=== PATIENT | female | born 1940 | race Caucasian/White ===

== ENCOUNTER 2017-09-16 09:55 | Day surgery (SDC) | payer OTHER ==
[~2017-09-16] VITALS: Ht 162.6 cm; Wt 56.4 kg
[~2017-09-16 09:55] MED LIST: ACCUPRIL PO; ACET325 PO; ACET500 PO; ACYC200 PO; AMOX500; ASPI81CH PO; ATOR40TA; ATOR40TA PO; Bactrim 400-801 EACH PO; CEPH500 PO; CHOL10002 PO; CINNAMON 500MG PO; CIPR500 PO; CLOT10 SUSW; COUMADIN PO; CYCL10; CYCL10 PO; Cinnamon500 MG PO; Coumadin7.5 MG PO; DOCU100; DOXY100 PO; ESOM20; EXELON PO; EXELON1 EACH PO; FAMO40 PO; Ferrous Sulfat325 M2 PO; GLIM4 PO; GLYMET5; GLYMET5 PO; HYDACE5; HYDACE5 PO; HYDPAM25; Kristalose20 GM PO; LACT10SY PO; LEVSOD75 PO; LOVA20; MECL12.5; METF500C PO; METHOTREXATE 25 MG/ML PO; METTREX2.5; Miralax17 GM PO; Nicoderm Cq1 EAC1 TD; OXYACE5T PO; OXYC10ER; OXYC5; OXYC5 PO; Omeprazole20 M1; Omeprazole20 M1 PO; PRED20 PO; PROACE100; Pepcid40 MG PO; QUIN10 PO; QUIN5; RIVASTIGMINE3 MG PO; RIVASTIGMINE4.5 MG PO; SERT100 PO; SERT50; SERT50 PO; Senexon8.6 MG; Sulfamethoxazo1 EAC4; TOCO400 PO; WARF1; WARF10 PO; WARF6; WARF6 PO; WARF7.5
[2017-10-20] MEDS ORDERED: TOCO1000 (15:29)
[2017-10-20] MEDS ORDERED: COLACE CLEAR50 MG PO (15:30)
[2017-10-20] MEDS ORDERED: MIRALAX17 GM PO (15:30)
[2017-10-20] MEDS ORDERED: SENEXON-S TABL1 EACH PO (15:30)
[2017-10-20] MEDS ORDERED: ALA-CORT28.4 GM (15:32)
[2017-11-04] MEDS ORDERED: MECL12.5 PO (13:17)
[2018-06-22] MEDS ORDERED: ALBU90OI6 INH (20:50)
[2018-06-22] MEDS ORDERED: ANORO ELLIPTA1 EACH INH (20:51)
[2018-06-24] MEDS ORDERED: OMEPRAZOLE MAGN20 MG PO (11:20)
[2018-06-24] MEDS ORDERED: Refresh Liquige15 ML BOTHEYES (11:22)
[2018-07-16] MEDS ORDERED: SERT100 PO (20:00)
[2018-07-16] MEDS ORDERED: LANS30EC PO (20:00)
[2018-07-16] MEDS ORDERED: GLIM4 PO (20:00)
[2018-07-16] MEDS ORDERED: RIVASTIGMINE6 MG PO (20:01)
[2018-07-16] MEDS ORDERED: ANORO ELLIPTA1 EACH INH (23:34)
[2018-07-16] MEDS ORDERED: ALBU90OI61 INH (23:37)
[2018-07-17] MEDS ORDERED: PANT40 PO (17:38)
== END 2017-09-16 12:56 | disposition home or self-care (01) ==
LOC: ORSCSDS 09:55
PROVIDERS: Ophthalmology
PROC: 08RK3JZ Replacement of Left Lens with Synthetic Substitute, Percutaneous Approach (ICD-10-PCS; principal; 2017-09-16 11:30)
DX: H25.12 Age-related nuclear cataract, left eye (principal); I10 Essential (primary) hypertension; E11.9 Type 2 diabetes mellitus without complications; Z87.891 Personal history of nicotine dependence; Z79.84 Long term (current) use of oral hypoglycemic drugs; Z79.899 Other long term (current) drug therapy
CPT/HCPCS: 82947; J2250; J3010; J7040; V2632

== ENCOUNTER 2017-10-12 10:47 | Emergency (ER) | payer OTHER ==
[~2017-10-12] VITALS: Ht 162.6 cm; Wt 80.7 kg
[2017-10-12 11:56] LABS: BASOPHILS PERCENT AUTO 1 % (0-2); EOSINOPHILS ABSOLUTE AUTO 0.16 K/mm3 (0.00-0.68); EOSINOPHILS PERCENT AUTO 2 % (0-6); Hematocrit 42.5 % (33.0-51.0); IMMATURE GRAN ABSOLUTE AUTO 0.03 K/mm3 (0.00-0.10); IMMATURE GRAN PERCENT AUTO 0 % (0-1); LYMPHOCYTES ABSOLUTE AUTO 2.75 K/mm3 (0.84-5.20); LYMPHOCYTES PERCENT AUTO 38 % (21-46); MONOCYTES ABSOLUTE AUTO 0.64 K/mm3 (0.16-1.47); MONOCYTES PERCENT AUTO 9 % (4-13); Mean Corpuscular HGB 29.4 pg (26.0-34.0); Mean Corpuscular HGB Conc 32.9 g/dL (31.5-36.5); Mean Corpuscular Volume 89 fL (80-100); Mean Platelet Volume 9.1 fL (9.1-12.4); NEUTROPHILS ABSOLUTE AUTO 3.54 K/mm3 (1.96-9.15); NEUTROPHILS PERCENT AUTO 49 % (41-73); Platelet Count 335 K/mm3 (150-400); RDW Coefficient Variation 18.6 % (11.7-14.2); RDW Standard Deviation 61.8 fL (35.1-46.3); Red Blood Cell Count 4.76 M/mm3 (3.80-5.20); White Blood Cell Count 7.22 K/mm3 (4.00-11.30)
[2017-10-12 12:15] LABS: Alanine Aminotransfer (ALT/SGP 35 U/L (12-78); Albumin, Blood 3.6 g/dL (3.4-5.0); Albumin/Globulin Ratio 0.9 (0.8-1.8); Alk Phos 102 U/L (50-136); Anion Gap 7 mmol/L (6-16); Aspartate Aminotrans (AST/SGOT 24 U/L (12-37); Bilirubin, Total 0.7 mg/dL (0.1-1.0); Blood Urea Nitrogen 15 mg/dL (8-24); Bun/Creatinine Ratio 25.9 (12.0-20.0); CO2, Blood 25 mmol/L (21-32); Calcium, Blood 8.8 mg/dL (8.5-10.1); Chloride, Blood 105 mmol/L (98-108); Creatinine, Blood 0.58 mg/dL (0.40-1.00); Globulin, Blood 3.8 g/dL (2.2-4.0); Glomerular Filtration Rate >60 (60-); Glucose, Blood 205 mg/dL (70-99); Potassium, Blood 4.1 mmol/L (3.5-5.5); Sodium, Blood 137 mmol/L (136-145); Total Protein, Blood 7.4 g/dL (6.4-8.2)
[2017-10-12 12:19] LABS: International Normalized Ratio 1.03; Prothrombin Time Results 10.7 Sec (9.7-11.5)
[2017-10-12 15:17] LABS: Source, Urine Clean Catch
[2017-10-12 15:24] LABS: Appearance, Urine Clear (Clear); Bilirubin, Urine Neg (Neg); Blood, Urine 2+ (Neg); Color, Urine Yellow (P-Yellow); Glucose Qualitative, Urine Neg (Neg); Ketones, Urine Neg (Neg); Leukocyte Esterase, Urine Neg (Neg); Nitrite, Urine Neg (Neg); Protein, Urine Neg (Neg); Specific Gravity, Urine 1.015 (1.003-1.022); Urobilinogen, Urine NORM (Normal)
[2017-10-12 15:34] LABS: Bacteria Not Seen /hpf; Red Blood Cells, Urine Not Seen /hpf (0-2); Squamous Epithelial Cells Not Seen /hpf (Few); White Blood Cells, Urine Not Seen /hpf (0-5)
[2017-10-20] MEDS ORDERED: TOCO1000 (15:29)
[2017-10-20] MEDS ORDERED: SENEXON-S TABL1 EACH PO (15:30)
[2017-10-20] MEDS ORDERED: COLACE CLEAR50 MG PO (15:30)
[2017-10-20] MEDS ORDERED: MIRALAX17 GM PO (15:30)
[2017-10-20] MEDS ORDERED: ALA-CORT28.4 GM (15:32)
[2017-11-04] MEDS ORDERED: MECL12.5 PO (13:17)
[2018-06-22] MEDS ORDERED: ALBU90OI6 INH (20:50)
[2018-06-22] MEDS ORDERED: ANORO ELLIPTA1 EACH INH (20:51)
[2018-06-24] MEDS ORDERED: OMEPRAZOLE MAGN20 MG PO (11:20)
[2018-06-24] MEDS ORDERED: Refresh Liquige15 ML BOTHEYES (11:22)
[2018-07-16] MEDS ORDERED: SERT100 PO (20:00)
[2018-07-16] MEDS ORDERED: GLIM4 PO (20:00)
[2018-07-16] MEDS ORDERED: LANS30EC PO (20:00)
[2018-07-16] MEDS ORDERED: RIVASTIGMINE6 MG PO (20:01)
[2018-07-16] MEDS ORDERED: ANORO ELLIPTA1 EACH INH (23:34)
[2018-07-16] MEDS ORDERED: ALBU90OI61 INH (23:37)
[2018-07-17] MEDS ORDERED: PANT40 PO (17:38)
== END 2017-10-12 16:25 | disposition home or self-care (01) ==
LOC: ER 10:47
PROVIDERS: Emergency Medicine
DX: R19.5 Other fecal abnormalities (principal); Z88.0 Allergy status to penicillin; Z88.8 Allergy status to other drugs, medicaments and biological substances; Z79.84 Long term (current) use of oral hypoglycemic drugs; Z79.899 Other long term (current) drug therapy; Z79.82 Long term (current) use of aspirin; E11.9 Type 2 diabetes mellitus without complications; I10 Essential (primary) hypertension; E78.5 Hyperlipidemia, unspecified; E03.9 Hypothyroidism, unspecified; F17.200 Nicotine dependence, unspecified, uncomplicated; K92.1 Melena
CPT/HCPCS: 36415; 71046; 80053; 81001; 82947; 85025; 85610; 85730; 86850; 86900; 86901; 93005; 93010; 99284

== ENCOUNTER 2017-10-28 11:58 | Day surgery (SDC) | payer OTHER ==
[~2017-10-28] VITALS: Ht 162.6 cm; Wt 56.7 kg
[~2017-10-28 11:58] MED LIST changes: +ALA-CORT28.4 GM; +COLACE CLEAR50 MG PO; +MIRALAX17 GM PO; +SENEXON-S TABL1 EACH PO; +TOCO1000
[2017-11-04] MEDS ORDERED: MECL12.5 PO (13:17)
[2018-06-22] MEDS ORDERED: ALBU90OI6 INH (20:50)
[2018-06-22] MEDS ORDERED: ANORO ELLIPTA1 EACH INH (20:51)
[2018-06-24] MEDS ORDERED: OMEPRAZOLE MAGN20 MG PO (11:20)
[2018-06-24] MEDS ORDERED: Refresh Liquige15 ML BOTHEYES (11:22)
[2018-07-16] MEDS ORDERED: SERT100 PO (20:00)
[2018-07-16] MEDS ORDERED: LANS30EC PO (20:00)
[2018-07-16] MEDS ORDERED: GLIM4 PO (20:00)
[2018-07-16] MEDS ORDERED: RIVASTIGMINE6 MG PO (20:01)
[2018-07-16] MEDS ORDERED: ANORO ELLIPTA1 EACH INH (23:34)
[2018-07-16] MEDS ORDERED: ALBU90OI61 INH (23:37)
[2018-07-17] MEDS ORDERED: PANT40 PO (17:38)
== END 2017-10-28 13:51 | disposition home or self-care (01) ==
LOC: ORSCSDS 11:58
PROVIDERS: Ophthalmology
PROC: 08RJ3JZ Replacement of Right Lens with Synthetic Substitute, Percutaneous Approach (ICD-10-PCS; principal; 2017-10-28 13:30)
DX: H25.11 Age-related nuclear cataract, right eye (principal); I10 Essential (primary) hypertension; F17.210 Nicotine dependence, cigarettes, uncomplicated; E11.9 Type 2 diabetes mellitus without complications; Z79.82 Long term (current) use of aspirin; Z79.899 Other long term (current) drug therapy; Z79.84 Long term (current) use of oral hypoglycemic drugs
CPT/HCPCS: 82947; J2250; J3010; J7040; V2632

== ENCOUNTER 2017-11-05 02:36 | Day surgery (SDC) | payer OTHER ==
[~2017-11-05] VITALS: Ht 190.5 cm; Wt 56.0 kg
[~2017-11-05 02:36] MED LIST changes: +MECL12.5 PO
[2017-11-05] MEDS ORDERED: Plavix75 MG PO (14:03)
[2017-11-06] MEDS ORDERED: Norco 5-325 Ta1 EACH PO (11:05)
[2017-11-06] MEDS ORDERED: Zofran4 MG PO (11:05)
[2018-06-22] MEDS ORDERED: ALBU90OI6 INH (20:50)
[2018-06-22] MEDS ORDERED: ANORO ELLIPTA1 EACH INH (20:51)
[2018-06-24] MEDS ORDERED: OMEPRAZOLE MAGN20 MG PO (11:20)
[2018-06-24] MEDS ORDERED: Refresh Liquige15 ML BOTHEYES (11:22)
[2018-07-16] MEDS ORDERED: SERT100 PO (20:00)
[2018-07-16] MEDS ORDERED: LANS30EC PO (20:00)
[2018-07-16] MEDS ORDERED: GLIM4 PO (20:00)
[2018-07-16] MEDS ORDERED: RIVASTIGMINE6 MG PO (20:01)
[2018-07-16] MEDS ORDERED: ANORO ELLIPTA1 EACH INH (23:34)
[2018-07-16] MEDS ORDERED: ALBU90OI61 INH (23:37)
[2018-07-17] MEDS ORDERED: PANT40 PO (17:38)
== END 2017-11-05 19:53 | disposition home or self-care (01) ==
LOC: MHTC 02:36 → ICUE 15:16 → MHTC 19:53
PROC: 047R3ZZ Dilation of Right Posterior Tibial Artery, Percutaneous Approach (ICD-10-PCS; principal; 2017-11-05)
PROC: 04CR3ZZ Extirpation of Matter from Right Posterior Tibial Artery, Percutaneous Approach (ICD-10-PCS; principal; 2017-11-05)
PROC: 047C3ZZ Dilation of Right Common Iliac Artery, Percutaneous Approach (ICD-10-PCS; principal; 2017-11-05)
PROC: 047D3EZ Dilation of Left Common Iliac Artery with Two Intraluminal Devices, Percutaneous Approach (ICD-10-PCS; principal; 2017-11-05)
DX: E11.51 Type 2 diabetes mellitus with diabetic peripheral angiopathy without gangrene (principal); I70.221 Atherosclerosis of native arteries of extremities with rest pain, right leg; I70.202 Unspecified atherosclerosis of native arteries of extremities, left leg; I10 Essential (primary) hypertension; F32.9 Major depressive disorder, single episode, unspecified; F17.210 Nicotine dependence, cigarettes, uncomplicated
CPT/HCPCS: 37186; 37221; 37229; 37232; 75625; 75710; 85347; 93005; 93010; 99152; 99153; C1724; C1725; C1757; C1769; C1876; C1887; C1894; J1644; J1885; J2250; J3010; J7030; J7040; Q9967

== ENCOUNTER 2017-11-06 09:00 | Emergency (ER) | payer OTHER ==
[~2017-11-06] VITALS: Ht 162.6 cm; Wt 55.8 kg
[~2017-11-06 09:00] MED LIST changes: +Plavix75 MG PO
[2017-11-06] MEDS ORDERED: Zofran4 MG PO (11:05)
[2017-11-06] MEDS ORDERED: Norco 5-325 Ta1 EACH PO (11:05)
[2018-06-22] MEDS ORDERED: ALBU90OI6 INH (20:50)
[2018-06-22] MEDS ORDERED: ANORO ELLIPTA1 EACH INH (20:51)
[2018-06-24] MEDS ORDERED: OMEPRAZOLE MAGN20 MG PO (11:20)
[2018-06-24] MEDS ORDERED: Refresh Liquige15 ML BOTHEYES (11:22)
[2018-07-16] MEDS ORDERED: GLIM4 PO (20:00)
[2018-07-16] MEDS ORDERED: LANS30EC PO (20:00)
[2018-07-16] MEDS ORDERED: SERT100 PO (20:00)
[2018-07-16] MEDS ORDERED: RIVASTIGMINE6 MG PO (20:01)
[2018-07-16] MEDS ORDERED: ANORO ELLIPTA1 EACH INH (23:34)
[2018-07-16] MEDS ORDERED: ALBU90OI61 INH (23:37)
[2018-07-17] MEDS ORDERED: PANT40 PO (17:38)
== END 2017-11-06 12:00 | disposition home or self-care (01) ==
LOC: ER 09:00
DX: G89.18 Other acute postprocedural pain (principal); M79.661 Pain in right lower leg; E11.9 Type 2 diabetes mellitus without complications; I10 Essential (primary) hypertension; E78.00 Pure hypercholesterolemia, unspecified; F17.210 Nicotine dependence, cigarettes, uncomplicated; Z88.1 Allergy status to other antibiotic agents; Z88.8 Allergy status to other drugs, medicaments and biological substances; Z79.82 Long term (current) use of aspirin; Z79.899 Other long term (current) drug therapy; Z98.61 Coronary angioplasty status
CPT/HCPCS: 93926; 96374; 96375; 99284; J2405; J3010

== ENCOUNTER 2017-12-09 17:22 | Observation (INO) | payer OTHER ==
[~2017-12-09] VITALS: Ht 162.6 cm; Wt 55.8 kg
[~2017-12-09 17:22] MED LIST changes: +METF500 PO; -METF500C PO; +Norco 5-325 Ta1 EACH PO; +Zofran4 MG PO
[2017-12-09] MEDS ORDERED: Prilosec Otc20 MG (17:37)
[2017-12-09] MEDS ORDERED: Prilosec Otc20 MG PO (17:37)
[2017-12-09 18:08] LABS: BASOPHILS ABSOLUTE AUTO 0.12 K/mm3 (0.00-0.23); BASOPHILS PERCENT AUTO 1 % (0-2); EOSINOPHILS ABSOLUTE AUTO 0.18 K/mm3 (0.00-0.68); EOSINOPHILS PERCENT AUTO 2 % (0-6); Hemoglobin 10.4 g/dL (11.5-16.0); IMMATURE GRAN ABSOLUTE AUTO 0.04 K/mm3 (0.00-0.10); IMMATURE GRAN PERCENT AUTO 0 % (0-1); LYMPHOCYTES PERCENT AUTO 34 % (21-46); MONOCYTES ABSOLUTE AUTO 0.92 K/mm3 (0.16-1.47); MONOCYTES PERCENT AUTO 10 % (4-13); Mean Corpuscular HGB 28.9 pg (26.0-34.0); Mean Corpuscular HGB Conc 31.5 g/dL (31.5-36.5); Mean Corpuscular Volume 92 fL (80-100); Mean Platelet Volume 9.2 fL (9.1-12.4); NEUTROPHILS ABSOLUTE AUTO 4.76 K/mm3 (1.96-9.15); NEUTROPHILS PERCENT AUTO 52 % (41-73); Platelet Count 518 K/mm3 (150-400); RDW Coefficient Variation 17.4 % (11.7-14.2); RDW Standard Deviation 59.2 fL (35.1-46.3); White Blood Cell Count 9.12 K/mm3 (4.00-11.30)
[2017-12-09 18:26] LABS: Alanine Aminotransfer (ALT/SGP 24 U/L (12-78); Albumin, Blood 3.7 g/dL (3.4-5.0); Albumin/Globulin Ratio 0.9 (0.8-1.8); Alk Phos 101 U/L (50-136); Anion Gap 6 mmol/L (6-16); Aspartate Aminotrans (AST/SGOT 21 U/L (12-37); Bilirubin, Total 0.3 mg/dL (0.1-1.0); Blood Urea Nitrogen 15 mg/dL (8-24); Bun/Creatinine Ratio 20.2 (12.0-20.0); CO2, Blood 23 mmol/L (21-32); Chloride, Blood 110 mmol/L (98-108); Creatinine, Blood 0.74 mg/dL (0.40-1.00); Globulin, Blood 3.9 g/dL (2.2-4.0); Glomerular Filtration Rate >60 (60-); Glucose, Blood 64 mg/dL (70-99); Potassium, Blood 4.2 mmol/L (3.5-5.5); Sodium, Blood 139 mmol/L (136-145); Total Protein, Blood 7.6 g/dL (6.4-8.2)
[2017-12-09 18:28] LABS: Troponin I <0.015 ng/mL (0.000-0.040)
[2017-12-09] MEDS ORDERED: ARTIFICIAL TEAR15 ML BOTHEYES (23:16)
[2017-12-10 04:13] LABS: BASOPHILS ABSOLUTE AUTO 0.09 K/mm3 (0.00-0.23); BASOPHILS PERCENT AUTO 2 % (0-2); EOSINOPHILS ABSOLUTE AUTO 0.18 K/mm3 (0.00-0.68); EOSINOPHILS PERCENT AUTO 3 % (0-6); Hematocrit 29.3 % (33.0-51.0); Hemoglobin 9.2 g/dL (11.5-16.0); IMMATURE GRAN ABSOLUTE AUTO 0.01 K/mm3 (0.00-0.10); IMMATURE GRAN PERCENT AUTO 0 % (0-1); LYMPHOCYTES PERCENT AUTO 46 % (21-46); MONOCYTES ABSOLUTE AUTO 0.68 K/mm3 (0.16-1.47); MONOCYTES PERCENT AUTO 12 % (4-13); Mean Corpuscular HGB 28.5 pg (26.0-34.0); Mean Corpuscular HGB Conc 31.4 g/dL (31.5-36.5); Mean Corpuscular Volume 91 fL (80-100); Mean Platelet Volume 8.9 fL (9.1-12.4); NEUTROPHILS ABSOLUTE AUTO 2.02 K/mm3 (1.96-9.15); NEUTROPHILS PERCENT AUTO 37 % (41-73); Platelet Count 464 K/mm3 (150-400); RDW Coefficient Variation 17.5 % (11.7-14.2); RDW Standard Deviation 58.2 fL (35.1-46.3); Red Blood Cell Count 3.23 M/mm3 (3.80-5.20); White Blood Cell Count 5.48 K/mm3 (4.00-11.30)
[2017-12-10 04:45] LABS: Alanine Aminotransfer (ALT/SGP 24 U/L (12-78); Albumin, Blood 3.1 g/dL (3.4-5.0); Albumin/Globulin Ratio 0.9 (0.8-1.8); Alk Phos 82 U/L (50-136); Anion Gap 6 mmol/L (6-16); Aspartate Aminotrans (AST/SGOT 12 U/L (12-37); Bilirubin, Total 0.3 mg/dL (0.1-1.0); Blood Urea Nitrogen 18 mg/dL (8-24); Bun/Creatinine Ratio 22.8 (12.0-20.0); CO2, Blood 27 mmol/L (21-32); Calcium, Blood 8.5 mg/dL (8.5-10.1); Chloride, Blood 108 mmol/L (98-108); Creatinine, Blood 0.79 mg/dL (0.40-1.00); Globulin, Blood 3.6 g/dL (2.2-4.0); Glomerular Filtration Rate >60 (60-); Glucose, Blood 55 mg/dL (70-99); Potassium, Blood 4.2 mmol/L (3.5-5.5); Sodium, Blood 141 mmol/L (136-145); Total Protein, Blood 6.7 g/dL (6.4-8.2)
[2017-12-10] MEDS ORDERED: PRED10 PO (14:30)
[2017-12-10] MEDS ORDERED: TRAM50 PO (14:30)
== END 2017-12-10 14:45 | disposition home or self-care (01) ==
LOC: ER 17:22 → SURS 17:23
PROVIDERS: Emergency Medicine; Internal Medicine
DX: M79.604 Pain in right leg (principal); E11.51 Type 2 diabetes mellitus with diabetic peripheral angiopathy without gangrene; I35.0 Nonrheumatic aortic (valve) stenosis; F17.210 Nicotine dependence, cigarettes, uncomplicated; M06.9 Rheumatoid arthritis, unspecified; E78.00 Pure hypercholesterolemia, unspecified; I10 Essential (primary) hypertension; Z95.820 Peripheral vascular angioplasty status with implants and grafts; Z88.0 Allergy status to penicillin; Z88.1 Allergy status to other antibiotic agents; Z91.040 Latex allergy status; Z88.8 Allergy status to other drugs, medicaments and biological substances; Z79.52 Long term (current) use of systemic steroids; Z91.048 Other nonmedicinal substance allergy status; Z79.899 Other long term (current) drug therapy; Z79.02 Long term (current) use of antithrombotics/antiplatelets; Z79.82 Long term (current) use of aspirin
CPT/HCPCS: 36415; 71046; 80053; 82947; 84484; 85025; 93005; 93010; 93926; 93971; 99285; J1650; J1885

== ENCOUNTER 2018-01-14 13:02 | Inpatient (IN) | payer OTHER ==
[~2018-01-14] VITALS: Ht 162.6 cm; Wt 57.6 kg
[~2018-01-14 13:02] MED LIST changes: +ARTIFICIAL TEAR15 ML BOTHEYES; -METF500 PO; +METF500C PO; +PRED10 PO; +Prilosec Otc20 MG; +Prilosec Otc20 MG PO; +TRAM50 PO
[2018-01-14 13:55] LABS: BASOPHILS PERCENT AUTO 1 % (0-2); EOSINOPHILS ABSOLUTE AUTO 0.09 K/mm3 (0.00-0.68); EOSINOPHILS PERCENT AUTO 1 % (0-6); Hematocrit 22.7 % (33.0-51.0); Hemoglobin 6.9 g/dL (11.5-16.0); IMMATURE GRAN ABSOLUTE AUTO 0.03 K/mm3 (0.00-0.10); IMMATURE GRAN PERCENT AUTO 0 % (0-1); LYMPHOCYTES ABSOLUTE AUTO 2.64 K/mm3 (0.84-5.20); LYMPHOCYTES PERCENT AUTO 36 % (21-46); MONOCYTES ABSOLUTE AUTO 0.55 K/mm3 (0.16-1.47); MONOCYTES PERCENT AUTO 8 % (4-13); Mean Corpuscular HGB 25.7 pg (26.0-34.0); Mean Corpuscular HGB Conc 30.4 g/dL (31.5-36.5); Mean Corpuscular Volume 84 fL (80-100); NEUTROPHILS ABSOLUTE AUTO 3.93 K/mm3 (1.96-9.15); NEUTROPHILS PERCENT AUTO 54 % (41-73); NRBC ABSOLUTE 0.03 K/mm3 (0.00-0.02); NRBC Auto 0.4 /100 WBC (0.0-0.2); Platelet Count 500 K/mm3 (150-400); RDW Coefficient Variation 18.8 % (11.7-14.2); RDW Standard Deviation 57.7 fL (35.1-46.3); Red Blood Cell Count 2.69 M/mm3 (3.80-5.20); White Blood Cell Count 7.34 K/mm3 (4.00-11.30)
[2018-01-14 14:13] LABS: Alanine Aminotransfer (ALT/SGP 18 U/L (12-78); Albumin, Blood 3.4 g/dL (3.4-5.0); Alk Phos 89 U/L (50-136); Anion Gap 10 mmol/L (6-16); Aspartate Aminotrans (AST/SGOT 16 U/L (12-37); Bilirubin, Total 0.4 mg/dL (0.1-1.0); Blood Urea Nitrogen 18 mg/dL (8-24); CO2, Blood 22 mmol/L (21-32); Calcium, Blood 8.5 mg/dL (8.5-10.1); Chloride, Blood 107 mmol/L (98-108); Creatinine, Blood 0.64 mg/dL (0.40-1.00); Globulin, Blood 3.3 g/dL (2.2-4.0); Glomerular Filtration Rate >60 (60-); Glucose, Blood 181 mg/dL (70-99); Potassium, Blood 4.2 mmol/L (3.5-5.5); Sodium, Blood 139 mmol/L (136-145); Total Protein, Blood 6.7 g/dL (6.4-8.2)
[2018-01-14 15:04] LABS: International Normalized Ratio 1.03; Prothrombin Time Results 10.7 Sec (9.7-11.5)
[2018-01-14] MEDS ORDERED: GABA300 PO (16:13)
[2018-01-15 05:30] LABS: BASOPHILS ABSOLUTE AUTO 0.11 K/mm3 (0.00-0.23); BASOPHILS PERCENT AUTO 2 % (0-2); EOSINOPHILS ABSOLUTE AUTO 0.14 K/mm3 (0.00-0.68); EOSINOPHILS PERCENT AUTO 2 % (0-6); Hematocrit 29.1 % (33.0-51.0); Hemoglobin 9.6 g/dL (11.5-16.0); IMMATURE GRAN ABSOLUTE AUTO 0.02 K/mm3 (0.00-0.10); IMMATURE GRAN PERCENT AUTO 0 % (0-1); LYMPHOCYTES ABSOLUTE AUTO 2.72 K/mm3 (0.84-5.20); LYMPHOCYTES PERCENT AUTO 46 % (21-46); MONOCYTES ABSOLUTE AUTO 0.64 K/mm3 (0.16-1.47); MONOCYTES PERCENT AUTO 11 % (4-13); Mean Corpuscular HGB 27.4 pg (26.0-34.0); Mean Corpuscular Volume 83 fL (80-100); Mean Platelet Volume 8.9 fL (9.1-12.4); NEUTROPHILS ABSOLUTE AUTO 2.25 K/mm3 (1.96-9.15); NEUTROPHILS PERCENT AUTO 38 % (41-73); NRBC ABSOLUTE 0.04 K/mm3 (0.00-0.02); NRBC Auto 0.7 /100 WBC (0.0-0.2); Platelet Count 397 K/mm3 (150-400); RDW Coefficient Variation 16.5 % (11.7-14.2); RDW Standard Deviation 50.6 fL (35.1-46.3); White Blood Cell Count 5.88 K/mm3 (4.00-11.30)
[2018-01-15 05:52] LABS: Alanine Aminotransfer (ALT/SGP 19 U/L (12-78); Albumin/Globulin Ratio 0.9 (0.8-1.8); Alk Phos 60 U/L (50-136); Anion Gap 9 mmol/L (6-16); Aspartate Aminotrans (AST/SGOT 18 U/L (12-37); Bilirubin, Total 2.2 mg/dL (0.1-1.0); Blood Urea Nitrogen 18 mg/dL (8-24); Bun/Creatinine Ratio 26.8 (12.0-20.0); CO2, Blood 22 mmol/L (21-32); Calcium, Blood 8.2 mg/dL (8.5-10.1); Chloride, Blood 112 mmol/L (98-108); Creatinine, Blood 0.67 mg/dL (0.40-1.00); Globulin, Blood 3.2 g/dL (2.2-4.0); Glomerular Filtration Rate >60 (60-); Glucose, Blood 104 mg/dL (70-99); Potassium, Blood 3.9 mmol/L (3.5-5.5); Sodium, Blood 143 mmol/L (136-145); Total Protein, Blood 6.2 g/dL (6.4-8.2)
[2018-01-16 05:08] LABS: BASOPHILS PERCENT AUTO 2 % (0-2); EOSINOPHILS ABSOLUTE AUTO 0.18 K/mm3 (0.00-0.68); EOSINOPHILS PERCENT AUTO 3 % (0-6); Hematocrit 28.6 % (33.0-51.0); Hemoglobin 9.2 g/dL (11.5-16.0); IMMATURE GRAN ABSOLUTE AUTO 0.03 K/mm3 (0.00-0.10); IMMATURE GRAN PERCENT AUTO 1 % (0-1); LYMPHOCYTES ABSOLUTE AUTO 2.06 K/mm3 (0.84-5.20); LYMPHOCYTES PERCENT AUTO 36 % (21-46); MONOCYTES ABSOLUTE AUTO 0.75 K/mm3 (0.16-1.47); MONOCYTES PERCENT AUTO 13 % (4-13); Mean Corpuscular HGB 26.7 pg (26.0-34.0); Mean Corpuscular HGB Conc 32.2 g/dL (31.5-36.5); Mean Corpuscular Volume 83 fL (80-100); Mean Platelet Volume 9.6 fL (9.1-12.4); NEUTROPHILS ABSOLUTE AUTO 2.62 K/mm3 (1.96-9.15); NEUTROPHILS PERCENT AUTO 46 % (41-73); NRBC ABSOLUTE 0.04 K/mm3 (0.00-0.02); NRBC Auto 0.7 /100 WBC (0.0-0.2); Platelet Count 418 K/mm3 (150-400); RDW Coefficient Variation 17.1 % (11.7-14.2); RDW Standard Deviation 51.1 fL (35.1-46.3); Red Blood Cell Count 3.45 M/mm3 (3.80-5.20); White Blood Cell Count 5.74 K/mm3 (4.00-11.30)
[2018-01-16 05:30] LABS: Anion Gap 9 mmol/L (6-16); Blood Urea Nitrogen 18 mg/dL (8-24); Bun/Creatinine Ratio 27.2 (12.0-20.0); CO2, Blood 21 mmol/L (21-32); Chloride, Blood 108 mmol/L (98-108); Creatinine, Blood 0.66 mg/dL (0.40-1.00); Glomerular Filtration Rate >60 (60-); Glucose, Blood 246 mg/dL (70-99); Potassium, Blood 4.1 mmol/L (3.5-5.5); Sodium, Blood 138 mmol/L (136-145)
[2018-01-16] MEDS ORDERED: Refresh Liquige15 ML BOTHEYES (12:55)
== END 2018-01-16 13:44 | disposition home or self-care (01) | DRG 379 ==
LOC: ER 13:02 → MEDS 17:14
PROVIDERS: Emergency Medicine; Internal Medicine
PROC: 0W3P8ZZ Control Bleeding in Gastrointestinal Tract, Via Natural or Artificial Opening Endoscopic (ICD-10-PCS; principal; 2018-01-14)
PROC: 30233N1 Transfusion of Nonautologous Red Blood Cells into Peripheral Vein, Percutaneous Approach (ICD-10-PCS; 2018-01-14)
DX: K55.21 Angiodysplasia of colon with hemorrhage (principal); I35.0 Nonrheumatic aortic (valve) stenosis; E11.51 Type 2 diabetes mellitus with diabetic peripheral angiopathy without gangrene; K31.811 Angiodysplasia of stomach and duodenum with bleeding; J44.9 Chronic obstructive pulmonary disease, unspecified; I10 Essential (primary) hypertension; E78.5 Hyperlipidemia, unspecified; E03.9 Hypothyroidism, unspecified; F17.210 Nicotine dependence, cigarettes, uncomplicated; Z66 Do not resuscitate
CPT/HCPCS: 36415; 36430; 71046; 80048; 80053; 82272; 82947; 85025; 85610; 85730; 86850; 86900; 86901; 86923; 93005; 93010; 96374; 99285; C9113; J2405; J7030; J7120; P9016

== ENCOUNTER 2018-05-04 06:34 | Day surgery (SDC) | payer OTHER ==
[~2018-05-04] VITALS: Ht 160 cm; Wt 62.4 kg
[~2018-05-04 06:34] MED LIST changes: +GABA300 PO; +Refresh Liquige15 ML BOTHEYES
[2018-05-04 09:27] LABS: Hematocrit 35.5 % (33.0-51.0); Hemoglobin 11.6 g/dL (11.5-16.0)
== END 2018-05-04 09:08 | disposition home or self-care (01) ==
LOC: ORSCSDS 06:34
PROVIDERS: Internal Medicine Gastroenterology
PROC: 0W3P8ZZ Control Bleeding in Gastrointestinal Tract, Via Natural or Artificial Opening Endoscopic (ICD-10-PCS; principal; 2018-05-04 08:00)
DX: D64.9 Anemia, unspecified (principal); Q27.33 Arteriovenous malformation of digestive system vessel; F32.9 Major depressive disorder, single episode, unspecified; E11.9 Type 2 diabetes mellitus without complications; E03.9 Hypothyroidism, unspecified; I35.0 Nonrheumatic aortic (valve) stenosis; I10 Essential (primary) hypertension; I73.9 Peripheral vascular disease, unspecified; R09.89 Other specified symptoms and signs involving the circulatory and respiratory systems; E78.5 Hyperlipidemia, unspecified; F17.210 Nicotine dependence, cigarettes, uncomplicated; Z79.82 Long term (current) use of aspirin; Z79.84 Long term (current) use of oral hypoglycemic drugs; Z79.899 Other long term (current) drug therapy
CPT/HCPCS: 82947; 85014; 85018; J0330; J1980; J2405; J7120

== ENCOUNTER 2018-05-11 08:35 | Day surgery (SDC) | payer OTHER ==
[~2018-05-11] VITALS: Ht 160 cm; Wt 60.4 kg
[2018-05-11] MEDS ORDERED: OMEPRAZOLE MAGN20 MG (09:33)
[2018-05-11] MEDS ORDERED: FERRETTS325 MG (09:33)
[2018-05-11] MEDS ORDERED: RIVASTIGMINE4.5 MG (09:34)
== END 2018-05-11 11:48 | disposition home or self-care (01) ==
LOC: ORSCSDS 08:35
DX: R19.4 Change in bowel habit (principal); D64.9 Anemia, unspecified; Z87.19 Personal history of other diseases of the digestive system; D12.2 Benign neoplasm of ascending colon; D12.0 Benign neoplasm of cecum; D12.4 Benign neoplasm of descending colon; K62.1 Rectal polyp; E11.9 Type 2 diabetes mellitus without complications; F32.9 Major depressive disorder, single episode, unspecified; I10 Essential (primary) hypertension; E78.5 Hyperlipidemia, unspecified; F17.210 Nicotine dependence, cigarettes, uncomplicated; Z79.82 Long term (current) use of aspirin; Z79.84 Long term (current) use of oral hypoglycemic drugs; Z79.899 Other long term (current) drug therapy
CPT/HCPCS: 82947; J7120

== ENCOUNTER → 2018-09-15 | Outpatient (CLI) | payer OTHER ==
[~2018-09-15] MED LIST changes: +ALBU90OI6 INH; +ALBU90OI61 INH; +ANORO ELLIPTA1 EACH INH; +ASPI325 PO; +DOCU100 PO; +FERRETTS325 MG; +GAVILAX17 GM PO; +LANS30EC PO; +OMEPRAZOLE MAGN20 MG; +OMEPRAZOLE MAGN20 MG PO; +ONDA4 PO; +PANT40 PO; +RIVASTIGMINE4.5 MG; +RIVASTIGMINE6 MG PO; +Tylophen500 MG PO; +[UNRECOGNIZED DRUG - OTHER]
[2018-09-15 17:13] LABS: Hematocrit 39.1 % (33.0-51.0); IMMATURE RETIC FRACTION 7.4 % (2.3-16.0); RETIC HGB EQUIVALENT 34.8 pg (28.20-36.60); RETICULOCYTE ABSOLUTE 0.0528 M/mm3 (0.0200-0.1100); RETICULOCYTE COUNT PERCENT 1.21 % (0.50-2.50)
== END ==
LOC: LAB 17:02 → LAB SHORT 17:02
PROVIDERS: Internal Medicine Gastroenterology
DX: D64.9 Anemia, unspecified (principal); K21.9 Gastro-esophageal reflux disease without esophagitis
CPT/HCPCS: 83540; 85014; 85018; 85045

== ENCOUNTER → 2018-10-13 | Outpatient (CLI) | payer OTHER ==
[2018-10-13 13:26] LABS: BASOPHILS PERCENT AUTO 2 % (0-2); EOSINOPHILS ABSOLUTE AUTO 0.24 K/mm3 (0.00-0.68); EOSINOPHILS PERCENT AUTO 5 % (0-6); Hematocrit 40.8 % (33.0-51.0); Hemoglobin 13.1 g/dL (11.5-16.0); IMMATURE GRAN ABSOLUTE AUTO 0.01 K/mm3 (0.00-0.10); IMMATURE GRAN PERCENT AUTO 0 % (0-1); LYMPHOCYTES ABSOLUTE AUTO 1.96 K/mm3 (0.84-5.20); LYMPHOCYTES PERCENT AUTO 38 % (21-46); MONOCYTES ABSOLUTE AUTO 0.61 K/mm3 (0.16-1.47); MONOCYTES PERCENT AUTO 12 % (4-13); Mean Corpuscular HGB 28.7 pg (26.0-34.0); Mean Corpuscular HGB Conc 32.1 g/dL (31.5-36.5); Mean Corpuscular Volume 89 fL (80-100); Mean Platelet Volume 9.9 fL (9.1-12.4); NEUTROPHILS ABSOLUTE AUTO 2.27 K/mm3 (1.96-9.15); NEUTROPHILS PERCENT AUTO 44 % (41-73); Platelet Count 328 K/mm3 (150-400); RDW Coefficient Variation 21.9 % (11.7-14.2); RDW Standard Deviation 73.5 fL (35.1-46.3); Red Blood Cell Count 4.57 M/mm3 (3.80-5.20); White Blood Cell Count 5.19 K/mm3 (4.00-11.30)
[2018-10-13 13:54] LABS: Prothrombin Time Results 10.6 Sec (9.7-11.5)
[2018-10-13 14:01] LABS: Anion Gap 3 mmol/L (6-16); Blood Urea Nitrogen 17 mg/dL (8-24); Bun/Creatinine Ratio 24.8 (12.0-20.0); CO2, Blood 28 mmol/L (21-32); Calcium, Blood 8.4 mg/dL (8.5-10.1); Chloride, Blood 106 mmol/L (98-108); Creatinine, Blood 0.69 mg/dL (0.40-1.00); Glomerular Filtration Rate >60 (60-); Glucose, Blood 195 mg/dL (70-99); Potassium, Blood 4.6 mmol/L (3.5-5.5); Sodium, Blood 137 mmol/L (136-145)
== END | disposition home or self-care (01) ==
LOC: LAB SHORT 12:26 → LAB 12:26
PROVIDERS: Internal Medicine Cardiovascular Disease
DX: I35.0 Nonrheumatic aortic (valve) stenosis (principal)
CPT/HCPCS: 80048; 85025; 85610

== ENCOUNTER 2018-10-14 05:39 | Day surgery (SDC) | payer OTHER ==
[~2018-10-14 05:39] MED LIST changes: -ASPI325 PO; -[UNRECOGNIZED DRUG - OTHER]
[2018-10-14] MEDS ORDERED: [UNRECOGNIZED DRUG - OTHER] (06:47)
[2018-10-14] MEDS ORDERED: ASPI325 PO (09:45)
--- NOTE | 2018-10-14 14:03 | NUR ---
DISCHARGE: PT REMAINED A&0X3 AND DENIED ANY PAIN DURING RECOVERY. PT UP TO RESTROOM WITH EASE TWICE DURING RECOVERY. IV DC'D WITH TIP IN TACT. TR BAND REMOVED WTIH CLOTH DOT AND WHITE BOARD IN [id number] HEMATOMA NOTED. PT DRESSED SELF WITH ASSISTANCE FROM DAUGHTER. DISCHARGE PAPERWORK GONE OVER WITH PT AND DAUGHTER. PT AND DAUGHTER VERBALLY STATED THE UNDERSTANDING OF THE DISCHARGE EDUCATION AND DENIED ANY QUESTIONS AT THIS TIME. PT WHEELED OUT BY THIS NURSE WITH ALL BELONGINGS.
== END 2018-10-14 23:11 | disposition home or self-care (01) ==
LOC: MHTC 05:39
DX: I35.0 Nonrheumatic aortic (valve) stenosis (principal)
CPT/HCPCS: 85347; 93005; 93010; 93454; 93571; 99152; 99153; C1725; C1769; C1874; C1887; C1894; C9600; J1644; J2250; J3010; J7030; Q9967

== ENCOUNTER 2018-10-25 13:50 | Observation (INO) | payer OTHER ==
[~2018-10-25] VITALS: Ht 162.6 cm; Wt 71.0 kg
[~2018-10-25 13:50] MED LIST changes: +ASPI325 PO; +[UNRECOGNIZED DRUG - OTHER] TOP
[2018-10-25 14:55] LABS: BASOPHILS ABSOLUTE AUTO 0.12 K/mm3 (0.00-0.23); BASOPHILS PERCENT AUTO 1 % (0-2); EOSINOPHILS ABSOLUTE AUTO 0.29 K/mm3 (0.00-0.68); EOSINOPHILS PERCENT AUTO 3 % (0-6); Hematocrit 28.3 % (33.0-51.0); IMMATURE GRAN ABSOLUTE AUTO 0.11 K/mm3 (0.00-0.10); IMMATURE GRAN PERCENT AUTO 1 % (0-1); LYMPHOCYTES ABSOLUTE AUTO 2.42 K/mm3 (0.84-5.20); LYMPHOCYTES PERCENT AUTO 25 % (21-46); MONOCYTES PERCENT AUTO 7 % (4-13); Mean Corpuscular HGB 30.6 pg (26.0-34.0); Mean Corpuscular HGB Conc 31.8 g/dL (31.5-36.5); Mean Platelet Volume 9.2 fL (9.1-12.4); NEUTROPHILS ABSOLUTE AUTO 6.02 K/mm3 (1.96-9.15); NEUTROPHILS PERCENT AUTO 62 % (41-73); NRBC ABSOLUTE 0.07 K/mm3 (0.00-0.02); NRBC Auto 0.7 /100 WBC (0.0-0.2); Platelet Count 376 K/mm3 (150-400); RDW Coefficient Variation 24.4 % (11.7-14.2); RDW Standard Deviation 84.9 fL (35.1-46.3); Red Blood Cell Count 2.94 M/mm3 (3.80-5.20); White Blood Cell Count 9.66 K/mm3 (4.00-11.30)
[2018-10-25 15:01] LABS: Mean Corpuscular Volume 96 fL (80-100)
[2018-10-25 15:12] LABS: Alanine Aminotransfer (ALT/SGP 30 U/L (12-78); Albumin, Blood 3.8 g/dL (3.4-5.0); Albumin/Globulin Ratio 1.2 (0.8-1.8); Alk Phos 102 U/L (50-136); Anion Gap 9 mmol/L (6-16); Aspartate Aminotrans (AST/SGOT 20 U/L (12-37); Bilirubin, Total 0.3 mg/dL (0.1-1.0); Blood Urea Nitrogen 21 mg/dL (8-24); Bun/Creatinine Ratio 27.2 (12.0-20.0); CO2, Blood 24 mmol/L (21-32); Calcium, Blood 8.5 mg/dL (8.5-10.1); Chloride, Blood 105 mmol/L (98-108); Creatinine, Blood 0.77 mg/dL (0.40-1.00); Globulin, Blood 3.3 g/dL (2.2-4.0); Glomerular Filtration Rate >60 (60-); Glucose, Blood 141 mg/dL (70-99); Potassium, Blood 4.3 mmol/L (3.5-5.5); Sodium, Blood 138 mmol/L (136-145); Total Protein, Blood 7.1 g/dL (6.4-8.2); Troponin I <0.015 ng/mL (0.000-0.040)
[2018-10-26 00:07] LABS: Hemoglobin 9.4 g/dL (11.5-16.0)
[2018-10-26 06:14] LABS: Hematocrit 29.2 % (33.0-51.0); Hemoglobin 9.5 g/dL (11.5-16.0); Mean Corpuscular HGB 30.4 pg (26.0-34.0); Mean Corpuscular HGB Conc 32.5 g/dL (31.5-36.5); Mean Corpuscular Volume 94 fL (80-100); Mean Platelet Volume 9.3 fL (9.1-12.4); NRBC ABSOLUTE 0.07 K/mm3 (0.00-0.02); NRBC Auto 1.1 /100 WBC (0.0-0.2); Platelet Count 310 K/mm3 (150-400); RDW Coefficient Variation 23.3 % (11.7-14.2); RDW Standard Deviation 75.1 fL (35.1-46.3); Red Blood Cell Count 3.12 M/mm3 (3.80-5.20); White Blood Cell Count 6.22 K/mm3 (4.00-11.30)
[2018-10-26 06:30] LABS: Alanine Aminotransfer (ALT/SGP 26 U/L (12-78); Albumin, Blood 3.2 g/dL (3.4-5.0); Albumin/Globulin Ratio 1.1 (0.8-1.8); Alk Phos 64 U/L (50-136); Anion Gap 9 mmol/L (6-16); Aspartate Aminotrans (AST/SGOT 22 U/L (12-37); Bilirubin, Total 0.5 mg/dL (0.1-1.0); Blood Urea Nitrogen 16 mg/dL (8-24); Bun/Creatinine Ratio 23.8 (12.0-20.0); CO2, Blood 23 mmol/L (21-32); Calcium, Blood 7.8 mg/dL (8.5-10.1); Chloride, Blood 109 mmol/L (98-108); Creatinine, Blood 0.67 mg/dL (0.40-1.00); Globulin, Blood 2.9 g/dL (2.2-4.0); Glomerular Filtration Rate >60 (60-); Glucose, Blood 132 mg/dL (70-99); Potassium, Blood 3.9 mmol/L (3.5-5.5); Sodium, Blood 141 mmol/L (136-145); Total Protein, Blood 6.1 g/dL (6.4-8.2)
[2018-10-26 06:40] LABS: Free Thyroxine 0.94 ng/dL (0.70-1.60)
[2018-10-26 06:43] LABS: Thyroid Stimulating Hormone 6.07 uIU/mL (0.360-4.800)
[2018-10-26 11:42] LABS: Hematocrit 28.5 % (33.0-51.0); Hemoglobin 9.4 g/dL (11.5-16.0)
[2018-10-26] MEDS ORDERED: GABA300 PO (15:32)
[2018-10-26 18:32] LABS: Hematocrit 29.9 % (33.0-51.0); Hemoglobin 9.7 g/dL (11.5-16.0)
--- NOTE | 2018-10-26 18:34 | NUR ---
SHIFT SUMMARY: PT NEW ADMIT THIS SHIFT. PLAN IS FOR RED TAG STUDY IN AM IN ORDER TO PIN DOWN WHERE BLEED IS COMING FROM AND TO GET HER H AND H STABLE ENOUGH SO SHE CAN HAVE A VALVE REPLACEMENT DONE. DAUGHTER AT BEDSIDE. NO FURTHER NEEDS OR CONCERNS IDENTIFIED.
--- NOTE | 2018-10-27 03:50 | NUR ---
SHIFT SUMMARY PT WAS IN GOOD SPIRITS THIS EVENING. PT WALKED THE FLOOR WITH FAMILY WITHOUT DISTRESS. PT HAD NO COMPLAINTS OR ACUTE ISSUES NOTED. PT HAS SLEPT THROUGHOUT THE NIGHT. PT IS CURRENTLY SLEEPING AND BREATHING EASY. CALL LIGHT IN REACH AND FAMILY IN ROOM.
--- NOTE | 2018-10-27 11:37 | NUR ---
THIS AM PT WITH INCREASING LETHARGY AND CONFUSION. PT CONTINUES WITH PAIN TO L HIP. HGB 6.9, PLT 27. SPOKE WITH DR. ROSE IN REGARDS TO ABOVE, RECIEVED ORDERS TO HOLD NARCOTICS, STAT ABG, AND GIVE ONE UNIT PRBC. 1130 DR. ROSE REQUESTS THAT THE ORDER FOR 1 UNIT PRBC BE HELD AT THIS TIME HBG IS ON THE FENCE. DR. ROSE REPORTS THAT HE WILL CONTACT [facility] FOR POTENTIAL TRANSFER THIS AFTERNOON. DR. GILBERT WROTE IN HIS PRGORESS NOTE 10/26 THAT PT SHOULD BE TRANSFERED TO [facility], ALTHOUGH [facility] WAS NOT PERMITTING. WCTM.
--- NOTE | 2018-10-27 15:49 | NUR ---
1540 PT DISCHARGED TO MEDICAL FLOOR VIA PERSONAL VEHICLE ACCOMPANIED AND DRIVEN BY DAUGHTER AND SON IN LAW. PT ESCORTED TO FACILITY ENTRANCE VIA W/C BY DOUBLE SURFACE OPERATOR. PT REPORTED THAT SHE DID NOT HAVE AN ACTIVE PRESCRIPTION FOR NICOTINE PATCHES AND PROTONIX, DR. COKER NOTIFIED RECIEVED ORDERS TO HAVE THEM FILLED, NEW RX PHONED IN TO [facility] PER PT REQUEST. IV REMOVED. D/C PAPERWORK REVIEWED WITH PT AND FAMILY. NO S/SX OF BLEEDING THIS SHIFT. PT REPORTED THAT SHE SPOKE WITH DR. CHEEMA ON THE PHONE PRIOR TO DISCHARGE TODAY.
--- NOTE | 2018-10-27 17:59 | NUR ---
Mrs. Bundy was in good spirits, but appeared frail. She expressed frustration with physical complications that are postponing a heart proceedure in [place]. She is used to being active and believes this proceedure will recover her energy and active lifestyle. Her dtr was at bedside and appears attentive and loving. They are pleased pt is well enough to go home today. I provided theraputic listening and prayer for continued healing.
== END 2018-10-27 15:27 | disposition home or self-care (01) ==
LOC: ER 13:50 → ERHOLD 13:51 → MEDS 10-26 12:16 → ENPENDDIS 10-27 13:00 → MEDS 10-27 15:27
PROVIDERS: Physician Assistant; ADMIT Internal Medicine
DX: R06.02 Shortness of breath (principal); R53.83 Other fatigue; D64.9 Anemia, unspecified; I35.0 Nonrheumatic aortic (valve) stenosis; I73.9 Peripheral vascular disease, unspecified; M06.9 Rheumatoid arthritis, unspecified; Q27.33 Arteriovenous malformation of digestive system vessel; R07.9 Chest pain, unspecified; G89.29 Other chronic pain; I10 Essential (primary) hypertension; J44.9 Chronic obstructive pulmonary disease, unspecified; E11.9 Type 2 diabetes mellitus without complications; E78.5 Hyperlipidemia, unspecified; E03.9 Hypothyroidism, unspecified; G30.9 Alzheimer's disease, unspecified; F02.80 Dementia in other diseases classified elsewhere, unspecified severity, without behavioral disturbance, psychotic disturbance, mood disturbance, and anxiety; H40.9 Unspecified glaucoma; F17.210 Nicotine dependence, cigarettes, uncomplicated; Z79.899 Other long term (current) drug therapy; Z79.82 Long term (current) use of aspirin; Z79.02 Long term (current) use of antithrombotics/antiplatelets; Z91.040 Latex allergy status; Z88.8 Allergy status to other drugs, medicaments and biological substances; Z88.1 Allergy status to other antibiotic agents; Z91.048 Other nonmedicinal substance allergy status
CPT/HCPCS: 36415; 36430; 71046; 78278; 80053; 82272; 82947; 84439; 84443; 84484; 85014; 85018; 85025; 85027; 86850; 86900; 86901; 86923; 93005; 93010; 96361; 96374; 96376; 99285-25; A9560; C9113; G0378; J7030; P9016

== ENCOUNTER 2018-11-30 12:53 | Observation (INO) | payer OTHER ==
[~2018-11-30] VITALS: Ht 152.4 cm; Wt 62.6 kg
[~2018-11-30 12:53] MED LIST changes: -ALBU90OI61 INH; -ASPI325 PO; +LO-DOSE ASPIRIN81 MG PO; +METF500 PO; -METF500C PO; -RIVASTIGMINE6 MG PO; +[UNRECOGNIZED DRUG - OTHER] TOP; -[UNRECOGNIZED DRUG - OTHER] TOP
[2018-11-30 13:38] LABS: BASOPHILS ABSOLUTE AUTO 0.11 K/mm3 (0.00-0.23); BASOPHILS PERCENT AUTO 1 % (0-2); EOSINOPHILS ABSOLUTE AUTO 0.22 K/mm3 (0.00-0.68); EOSINOPHILS PERCENT AUTO 3 % (0-6); Hematocrit 23.9 % (33.0-51.0); Hemoglobin 7.1 g/dL (11.5-16.0); IMMATURE GRAN ABSOLUTE AUTO 0.04 K/mm3 (0.00-0.10); IMMATURE GRAN PERCENT AUTO 1 % (0-1); LYMPHOCYTES ABSOLUTE AUTO 1.69 K/mm3 (0.84-5.20); LYMPHOCYTES PERCENT AUTO 21 % (21-46); MONOCYTES ABSOLUTE AUTO 0.83 K/mm3 (0.16-1.47); MONOCYTES PERCENT AUTO 10 % (4-13); Mean Corpuscular HGB 28.5 pg (26.0-34.0); Mean Corpuscular HGB Conc 29.7 g/dL (31.5-36.5); Mean Corpuscular Volume 96 fL (80-100); Mean Platelet Volume 9.6 fL (9.1-12.4); NEUTROPHILS ABSOLUTE AUTO 5.36 K/mm3 (1.96-9.15); NEUTROPHILS PERCENT AUTO 65 % (41-73); NRBC ABSOLUTE 0.07 K/mm3 (0.00-0.02); NRBC Auto 0.8 /100 WBC (0.0-0.2); Platelet Count 490 K/mm3 (150-400); RDW Coefficient Variation 18.4 % (11.7-14.2); Red Blood Cell Count 2.49 M/mm3 (3.80-5.20); White Blood Cell Count 8.25 K/mm3 (4.00-11.30)
[2018-11-30 13:52] LABS: Prothrombin Time Results 10.6 Sec (9.7-11.5)
[2018-11-30 14:04] LABS: Alanine Aminotransfer (ALT/SGP 24 U/L (12-78); Albumin, Blood 3.4 g/dL (3.4-5.0); Alk Phos 103 U/L (50-136); Anion Gap 7 mmol/L (6-16); Aspartate Aminotrans (AST/SGOT 14 U/L (12-37); Bilirubin, Total 0.3 mg/dL (0.1-1.0); Blood Urea Nitrogen 18 mg/dL (8-24); Bun/Creatinine Ratio 29.1 (12.0-20.0); CO2, Blood 23 mmol/L (21-32); Calcium, Blood 8.2 mg/dL (8.5-10.1); Chloride, Blood 111 mmol/L (98-108); Creatinine, Blood 0.62 mg/dL (0.40-1.00); Globulin, Blood 3.4 g/dL (2.2-4.0); Glomerular Filtration Rate >60 (60-); Glucose, Blood 232 mg/dL (70-99); Potassium, Blood 4.3 mmol/L (3.5-5.5); Sodium, Blood 141 mmol/L (136-145); Total Protein, Blood 6.8 g/dL (6.4-8.2)
[2018-11-30] MEDS ORDERED: ALBU2.5V5 INH (19:15)
[2018-11-30] MEDS ORDERED: ANORO ELLIPTA1 EACH INH (19:16)
[2018-12-01 00:39] LABS: Hematocrit 28.5 % (33.0-51.0); Hemoglobin 8.9 g/dL (11.5-16.0)
--- NOTE | 2018-12-01 03:47 | NUR ---
SHIFT SUMMARY: PT IS ALERT AND ORIENTED. PT IS A STANDBY ASSIST TO THE BATHROOM. PT CALLS APPROPRIATELY. PT IS CALM AND COOPERATIVE WITH CARE. FAMILY MEMBER IN THE ROOM OVERNIGHT. 2 UNITS OF RBC'S TRANSFUSED, HBG UP TO 8.9. PT DENIES PAIN, NAUSEA, AND VOMITING. PT REPORTS SOB UPON EXERTION AND GENERALIZED FATIGUE, ON ROOM AIR. PT SLEPT MUCH OF THE NIGHT WHEN NOT DISTURBED. NO ACUTE CHANGES OR COMPLICATIONS THIS SHIFT. BED IN LOW POSITION, CALL LIGHT WITHIN REACH. WILL REPORT TO DAY NURSE.
[2018-12-01 05:21] LABS: BASOPHILS ABSOLUTE AUTO 0.14 K/mm3 (0.00-0.23); BASOPHILS PERCENT AUTO 2 % (0-2); EOSINOPHILS ABSOLUTE AUTO 0.32 K/mm3 (0.00-0.68); EOSINOPHILS PERCENT AUTO 5 % (0-6); Hematocrit 28.7 % (33.0-51.0); Hemoglobin 9.1 g/dL (11.5-16.0); IMMATURE GRAN ABSOLUTE AUTO 0.03 K/mm3 (0.00-0.10); IMMATURE GRAN PERCENT AUTO 1 % (0-1); LYMPHOCYTES ABSOLUTE AUTO 1.77 K/mm3 (0.84-5.20); LYMPHOCYTES PERCENT AUTO 27 % (21-46); MONOCYTES ABSOLUTE AUTO 0.88 K/mm3 (0.16-1.47); MONOCYTES PERCENT AUTO 14 % (4-13); Mean Corpuscular HGB 28.3 pg (26.0-34.0); Mean Corpuscular HGB Conc 31.7 g/dL (31.5-36.5); Mean Platelet Volume 9.5 fL (9.1-12.4); NEUTROPHILS PERCENT AUTO 52 % (41-73); NRBC ABSOLUTE 0.05 K/mm3 (0.00-0.02); NRBC Auto 0.8 /100 WBC (0.0-0.2); Platelet Count 407 K/mm3 (150-400); RDW Coefficient Variation 19.1 % (11.7-14.2); RDW Standard Deviation 61.6 fL (35.1-46.3); Red Blood Cell Count 3.22 M/mm3 (3.80-5.20); White Blood Cell Count 6.54 K/mm3 (4.00-11.30)
[2018-12-01 05:22] LABS: Mean Corpuscular Volume 89 fL (80-100)
[2018-12-01 06:05] LABS: Anion Gap 7 mmol/L (6-16); Blood Urea Nitrogen 17 mg/dL (8-24); Bun/Creatinine Ratio 25.8 (12.0-20.0); CO2, Blood 24 mmol/L (21-32); Calcium, Blood 8.5 mg/dL (8.5-10.1); Chloride, Blood 111 mmol/L (98-108); Creatinine, Blood 0.66 mg/dL (0.40-1.00); Glomerular Filtration Rate >60 (60-); Glucose, Blood 76 mg/dL (70-99); Sodium, Blood 142 mmol/L (136-145)
[2018-12-01] MEDS ORDERED: HYDPAM25 PO (12:41)
--- NOTE | 2018-12-01 14:45 | NUR ---
DISCHARGE DISCHARGE MEDICATIONS AND INSTRUCTIONS EXPLAINED TO PATIENT AND PATIENT'S DAUGHTER. THEY STATED UNDERSTANDING. IV REMOVED WITHOUT DIFFICULTY. BELONGINGS WITH PATIENT. DR. COKER CALLED TO INFORM OF [facility]G OF 253 AND TO INFORM OF NENA REQUEST FOR ANXIETY MEDICATION TO BE ADDED TO DISCHARGE MEDICATIONS. ORDERS GIVEN FOR ANXIETY MEDICATION TO BE CALLED IN TO PATIENT'S PHARMACY. PATIENT TRANSFERED TO PRIVATE VEHICLE VIA WHEELCHAIR.
== END 2018-12-01 15:20 | disposition home or self-care (01) ==
LOC: ER 12:53 → MEDS 12:54 → ENPENDDIS 12-01 11:20 → MEDS 12-01 15:20
PROVIDERS: Emergency Medicine; ADMIT Hospitalist
DX: D50.0 Iron deficiency anemia secondary to blood loss (chronic) (principal); Q27.33 Arteriovenous malformation of digestive system vessel; I35.0 Nonrheumatic aortic (valve) stenosis; I73.9 Peripheral vascular disease, unspecified; J44.9 Chronic obstructive pulmonary disease, unspecified; I10 Essential (primary) hypertension; E11.9 Type 2 diabetes mellitus without complications; E78.5 Hyperlipidemia, unspecified; E03.9 Hypothyroidism, unspecified; Z91.040 Latex allergy status; Z88.0 Allergy status to penicillin; Z88.8 Allergy status to other drugs, medicaments and biological substances; Z91.048 Other nonmedicinal substance allergy status; Z79.899 Other long term (current) drug therapy; Z79.82 Long term (current) use of aspirin; Z86.010 Personal history of colon polyps; Z79.02 Long term (current) use of antithrombotics/antiplatelets; Z79.84 Long term (current) use of oral hypoglycemic drugs
CPT/HCPCS: 36415; 36430; 80048; 80053; 82947; 85014; 85018; 85025; 85610; 86850; 86900; 86901; 86923; 93005; 93010; 99285-25; J7030; P9016

== ENCOUNTER → 2018-12-14 | Outpatient (CLI) | payer OTHER ==
[~2018-12-14] MED LIST changes: +ALBU2.5V5 INH; +HYDPAM25 PO
[2018-12-14 13:54] LABS: Cholesterol 137 mg/dL (50-200)
[2018-12-15 13:33] LABS: CHOL/HDL RATIO 2.8; HDL Cholesterol 49 mg/dL (>39); LDL/HDL RATIO 1.2; Low Density Lipoprotein Chol 58 mg/dL (0-110); Triglycerides 150 mg/dL (30-160); Very Low Density Lipoprot Chol 30 mg/dL (6-32)
== END ==
LOC: LAB SHORT 12:56 → LAB 12:56
PROVIDERS: Nurse Practitioner Family
DX: E11.40 Type 2 diabetes mellitus with diabetic neuropathy, unspecified (principal); E78.5 Hyperlipidemia, unspecified; E03.9 Hypothyroidism, unspecified
CPT/HCPCS: 80061; 82465; 83036; 84443

== ENCOUNTER → 2019-02-08 | Outpatient (CLI) | payer OTHER ==
[2019-02-08 19:11] LABS: Alanine Aminotransfer (ALT/SGP 27 U/L (12-78); Albumin/Globulin Ratio 1.2 (0.8-1.8); Alk Phos 104 U/L (50-136); Anion Gap 10 mmol/L (6-16); Aspartate Aminotrans (AST/SGOT 23 U/L (12-37); Bilirubin, Total 0.4 mg/dL (0.1-1.0); Blood Urea Nitrogen 17 mg/dL (8-24); Bun/Creatinine Ratio 19.7 (12.0-20.0); CO2, Blood 22 mmol/L (21-32); Calcium, Blood 9.1 mg/dL (8.5-10.1); Chloride, Blood 106 mmol/L (98-108); Creatinine, Blood 0.86 mg/dL (0.40-1.00); Globulin, Blood 3.3 g/dL (2.2-4.0); Glomerular Filtration Rate >60 (60-); Glucose, Blood 222 mg/dL (70-99); Sodium, Blood 138 mmol/L (136-145); Total Protein, Blood 7.3 g/dL (6.4-8.2)
[2019-02-08 19:12] LABS: Percent Saturation 3.8 % (15.0-50.0)
== END | disposition home or self-care (01) ==
LOC: LAB 18:09 → LAB SHORT 18:09
PROVIDERS: Internal Medicine Hematology & Oncology
DX: K92.2 Gastrointestinal hemorrhage, unspecified (principal)
CPT/HCPCS: 80053; 82728; 83540; 83550

== ENCOUNTER → 2019-02-15 | Outpatient (CLI) | payer OTHER ==
[2019-02-15 12:36] LABS: Hematocrit 32.9 % (33.0-51.0); Hemoglobin 9.9 g/dL (11.5-16.0)
[2019-02-15 12:39] LABS: Appearance, Urine Clear (Clear); Bilirubin, Urine Neg (Neg); Blood, Urine 1+ (Neg); Color, Urine Yellow (P-Yellow); Glucose Qualitative, Urine 4+ (Neg); Ketones, Urine Neg (Neg); Leukocyte Esterase, Urine 2+ (Neg); Nitrite, Urine Neg (Neg); Protein, Urine Neg (Neg); Urobilinogen, Urine NORM (Normal)
[2019-02-15 13:24] LABS: Bacteria Many /hpf; Red Blood Cells, Urine 0-2 /hpf (0-2); Squamous Epithelial Cells Few /hpf (Few)
== END | disposition home or self-care (01) ==
LOC: LAB SHORT 12:21 → LAB 12:21
PROVIDERS: Internal Medicine Gastroenterology; Internal Medicine Hematology & Oncology
DX: K92.2 Gastrointestinal hemorrhage, unspecified (principal); D64.9 Anemia, unspecified; R53.83 Other fatigue
CPT/HCPCS: 81001; 85014; 85018; 87077; 87086; 87186

== ENCOUNTER → 2019-03-22 | Outpatient (CLI) | payer OTHER ==
[2019-03-23 11:13] LABS: Campylobacter Sp Not Detected (NOT DETECT)
[2019-03-23 11:14] LABS: Adenovirus F 40/41 Not Detected (NOT DETECT); Astrovirus Not Detected (NOT DETECT); Cryptosporidium Not Detected (NOT DETECT); Cyclospora Cayetanensis Not Detected (NOT DETECT); E. Coli O157 Not Detected (NOT DETECT); Entamoeba Histolytica Not Detected (NOT DETECT); Enteroaggregative E. coli-EAEC Not Detected (NOT DETECT); Enteropathogenic E. coli-EPEC Not Detected (NOT DETECT); Enterotoxigenic E. coli-ETEC Not Detected (NOT DETECT); Giardia Lamblia Not Detected (NOT DETECT); Norovirus GI/GII Not Detected (NOT DETECT); Plesiomonas Shigelloides Not Detected (NOT DETECT); Rotavirus A Not Detected (NOT DETECT); Salmonella Sp Not Detected (NOT DETECT); Sapovirus Not Detected (NOT DETECT); Shiga Toxin-prod E. coli-STEC Not Detected (NOT DETECT); Shigella/Enteroin E. coli-EIEC Not Detected (NOT DETECT); Vibrio Cholerae Not Detected (NOT DETECT); Vibrio Sp Not Detected (NOT DETECT); Yersinia Enterocolitica Not Detected (NOT DETECT)
== END | disposition home or self-care (01) ==
LOC: LAB SHORT 07:45 → LAB 07:45 → LAB FUT 03-15 11:10
PROVIDERS: Internal Medicine Hematology & Oncology
DX: R19.7 Diarrhea, unspecified (principal)
CPT/HCPCS: 0097U

== ENCOUNTER → 2019-05-10 | Outpatient (CLI) | payer OTHER ==
[2019-05-11 13:10] LABS: Stool Occult Bld Immuno 1 Negative (NEGATIVE)
== END | disposition home or self-care (01) ==
LOC: LAB EV 09:00
PROVIDERS: Internal Medicine Gastroenterology
DX: K63.5 Polyp of colon (principal)
CPT/HCPCS: G0328

== ENCOUNTER → 2019-06-16 | Outpatient (CLI) | payer OTHER | END | disposition home or self-care (01) | LOC: LAB EV 16:25 → LAB SHORT 16:25 | DX: N39.0 Urinary tract infection, site not specified (principal) | CPT/HCPCS: 87077; 87086; 87186 ==

== ENCOUNTER → 2019-11-16 | Outpatient (CLI) | payer OTHER ==
[~2019-11-16] MED LIST changes: +VOLTAREN100 GM TOP
[2019-11-16 14:31] LABS: Percent Saturation 23.5 % (15.0-50.0)
== END | disposition home or self-care (01) ==
LOC: LAB 12:04 → LAB SHORT 12:04
PROVIDERS: Internal Medicine Hematology & Oncology
DX: D64.9 Anemia, unspecified (principal)
CPT/HCPCS: 82728; 83540; 83550

== ENCOUNTER 2020-01-28 22:39 | Emergency (ER) | payer OTHER ==
[~2020-01-28] VITALS: Ht 162.6 cm; Wt 59.0 kg
[2020-01-28 23:24] LABS: BASOPHILS PERCENT AUTO 1 % (0-2); EOSINOPHILS PERCENT AUTO 1 % (0-6); Hematocrit 35.7 % (33.0-51.0); IMMATURE GRAN ABSOLUTE AUTO 0.07 K/mm3 (0.00-0.10); IMMATURE GRAN PERCENT AUTO 1 % (0-1); LYMPHOCYTES ABSOLUTE AUTO 1.74 K/mm3 (0.84-5.20); LYMPHOCYTES PERCENT AUTO 12 % (21-46); MONOCYTES PERCENT AUTO 7 % (4-13); Mean Corpuscular HGB 31.1 pg (26.0-34.0); Mean Corpuscular HGB Conc 33.6 g/dL (31.5-36.5); Mean Corpuscular Volume 93 fL (80-100); Mean Platelet Volume 9.3 fL (9.1-12.4); NEUTROPHILS ABSOLUTE AUTO 11.07 K/mm3 (1.96-9.15); NEUTROPHILS PERCENT AUTO 78 % (41-73); Platelet Count 356 K/mm3 (150-400); RDW Coefficient Variation 15.9 % (11.7-14.2); RDW Standard Deviation 53.5 fL (35.1-46.3); Red Blood Cell Count 3.86 M/mm3 (3.80-5.20); White Blood Cell Count 14.18 K/mm3 (4.00-11.30)
[2020-01-28 23:44] LABS: Alanine Aminotransfer (ALT/SGP 31 U/L (12-78); Albumin, Blood 3.5 g/dL (3.4-5.0); Alk Phos 101 U/L (50-136); Anion Gap 9 mmol/L (6-16); Aspartate Aminotrans (AST/SGOT 29 U/L (12-37); Bilirubin, Total 0.6 mg/dL (0.1-1.0); Blood Urea Nitrogen 12 mg/dL (8-24); Bun/Creatinine Ratio 17.9 (12.0-20.0); CO2, Blood 20 mmol/L (21-32); Calcium, Blood 8.6 mg/dL (8.5-10.1); Chloride, Blood 110 mmol/L (98-108); Creatinine, Blood 0.67 mg/dL (0.40-1.00); Globulin, Blood 3.4 g/dL (2.2-4.0); Glomerular Filtration Rate >60 (60-); Glucose, Blood 148 mg/dL (70-99); Potassium, Blood 3.9 mmol/L (3.5-5.5); Sodium, Blood 139 mmol/L (136-145); Total Protein, Blood 6.9 g/dL (6.4-8.2); Troponin I <0.015 ng/mL (0.000-0.040)
== END 2020-01-29 01:00 | disposition home or self-care (01) ==
LOC: ER 22:39
PROVIDERS: Emergency Medicine
DX: M25.512 Pain in left shoulder (principal); M79.632 Pain in left forearm; M25.522 Pain in left elbow; M25.532 Pain in left wrist; I10 Essential (primary) hypertension; E11.9 Type 2 diabetes mellitus without complications; J44.9 Chronic obstructive pulmonary disease, unspecified; Z87.891 Personal history of nicotine dependence; Z79.899 Other long term (current) drug therapy; Z79.84 Long term (current) use of oral hypoglycemic drugs; Z79.02 Long term (current) use of antithrombotics/antiplatelets
CPT/HCPCS: 36415; 71045; 73060; 73090; 80053; 84484; 85025; 93005; 93010; 96374-59; 96375-59; 99284-25; A9270; J1170; J1885; J2405

== ENCOUNTER → 2020-05-14 | Outpatient (CLI) | payer OTHER ==
[2020-05-14 20:22] LABS: Percent Saturation 7.5 % (15.0-50.0)
== END | disposition home or self-care (01) ==
LOC: LAB SHORT 17:41 → LAB 17:41
PROVIDERS: Internal Medicine Hematology & Oncology
DX: D50.0 Iron deficiency anemia secondary to blood loss (chronic) (principal); D50.8 Other iron deficiency anemias
CPT/HCPCS: 82728; 83540; 83550

== ENCOUNTER 2020-09-12 06:37 | Day surgery (SDC) | payer OTHER ==
[~2020-09-12] VITALS: Ht 162.6 cm; Wt 55.3 kg
--- NOTE | 2020-09-12 11:13 | NUR ---
09/12/20 Heather3 Judith Buck LATE ENTRY: PT VOIDED PRIOR TO DISCHARGE. PT VOIDED ABOUT 500CC OF CLEAR YELLOW URINE.
== END 2020-09-12 10:58 | disposition home or self-care (01) ==
LOC: ORSCSDS 06:37
PROVIDERS: Internal Medicine Gastroenterology
PROC: 0DBK8ZX Excision of Ascending Colon, Via Natural or Artificial Opening Endoscopic, Diagnostic (ICD-10-PCS; principal; 2020-09-12 08:00)
PROC: 3E0H8KZ Introduction of Other Diagnostic Substance into Lower GI, Via Natural or Artificial Opening Endoscopic (ICD-10-PCS; principal; 2020-09-12 08:00)
PROC: 0DBL8ZX Excision of Transverse Colon, Via Natural or Artificial Opening Endoscopic, Diagnostic (ICD-10-PCS; principal; 2020-09-12 08:00)
PROC: 0DB98ZX Excision of Duodenum, Via Natural or Artificial Opening Endoscopic, Diagnostic (ICD-10-PCS; principal; 2020-09-12 08:00)
PROC: 0DBH8ZX Excision of Cecum, Via Natural or Artificial Opening Endoscopic, Diagnostic (ICD-10-PCS; principal; 2020-09-12 08:00)
PROC: 0DJ08ZZ Inspection of Upper Intestinal Tract, Via Natural or Artificial Opening Endoscopic (ICD-10-PCS; principal; 2020-09-12 08:00)
PROC: 0DBN8ZX Excision of Sigmoid Colon, Via Natural or Artificial Opening Endoscopic, Diagnostic (ICD-10-PCS; principal; 2020-09-12 08:00)
PROC: 0DB68ZX Excision of Stomach, Via Natural or Artificial Opening Endoscopic, Diagnostic (ICD-10-PCS; principal; 2020-09-12 08:00)
DX: D50.9 Iron deficiency anemia, unspecified (principal); R19.7 Diarrhea, unspecified; R10.9 Unspecified abdominal pain; D12.3 Benign neoplasm of transverse colon; D12.0 Benign neoplasm of cecum; D12.2 Benign neoplasm of ascending colon; D12.5 Benign neoplasm of sigmoid colon; I10 Essential (primary) hypertension; E03.9 Hypothyroidism, unspecified; E11.42 Type 2 diabetes mellitus with diabetic polyneuropathy; Z79.84 Long term (current) use of oral hypoglycemic drugs; Z79.899 Other long term (current) drug therapy
CPT/HCPCS: 82947; 88305; 88342; J0330; J0461; J2405; J2704; J7120

== ENCOUNTER → 2020-10-08 | Outpatient (CLI) | payer OTHER ==
[~2020-10-08] MED LIST changes: +ACULAR5 M1 IO; +PROC5 PO; +SITA50T2 PO; +VOLTAREN ARTHRI20 GM TOP
[2020-10-10 06:26] LABS: C DIFFICILE DNA NEGATIVE (Negative)
[2020-10-19 05:10] LABS: NOROVIRUS GI Negative (Negative); NOROVIRUS GII Positive (Negative)
== END | disposition home or self-care (01) ==
LOC: PLD 12:30 → LAB 12:30 → LAB SHORT 12:30
PROVIDERS: Internal Medicine Gastroenterology
DX: R19.7 Diarrhea, unspecified (principal)
CPT/HCPCS: 83993; 87015; 87045; 87046; 87177; 87205; 87206; 87209; 87425; 87493; 87798; 87899

== ENCOUNTER 2020-11-17 20:07 | Emergency (ER) | payer OTHER ==
[~2020-11-17] VITALS: Ht 160 cm; Wt 54.4 kg
[~2020-11-17 20:07] MED LIST changes: -ACULAR5 M1 IO; -PROC5 PO; -SITA50T2 PO; -VOLTAREN ARTHRI20 GM TOP
[2020-11-17] MEDS ORDERED: SITA50T2 PO (20:51)
[2020-11-17] MEDS ORDERED: ACULAR5 M1 IO (20:52)
[2020-11-17 20:53] LABS: BASOPHILS PERCENT AUTO 1 % (0-2); EOSINOPHILS ABSOLUTE AUTO 0.13 K/mm3 (0.00-0.68); EOSINOPHILS PERCENT AUTO 2 % (0-6); Hematocrit 35.5 % (33.0-51.0); Hemoglobin 11.7 g/dL (11.5-16.0); IMMATURE GRAN ABSOLUTE AUTO 0.04 K/mm3 (0.00-0.10); IMMATURE GRAN PERCENT AUTO 1 % (0-1); LYMPHOCYTES ABSOLUTE AUTO 1.88 K/mm3 (0.84-5.20); LYMPHOCYTES PERCENT AUTO 23 % (21-46); MONOCYTES PERCENT AUTO 11 % (4-13); Mean Corpuscular HGB 30.2 pg (26.0-34.0); Mean Corpuscular Volume 92 fL (80-100); Mean Platelet Volume 8.8 fL (9.1-12.4); NEUTROPHILS ABSOLUTE AUTO 5.19 K/mm3 (1.96-9.15); NEUTROPHILS PERCENT AUTO 63 % (41-73); Platelet Count 382 K/mm3 (150-400); RDW Coefficient Variation 14.4 % (11.7-14.2); RDW Standard Deviation 47.8 fL (35.1-46.3); Red Blood Cell Count 3.87 M/mm3 (3.80-5.20); White Blood Cell Count 8.24 K/mm3 (4.00-11.30)
[2020-11-17] MEDS ORDERED: VOLTAREN ARTHRI20 GM TOP (20:54)
[2020-11-17] MEDS ORDERED: PROC5 PO (20:56)
[2020-11-17 21:19] LABS: Alanine Aminotransfer (ALT/SGP 34 U/L (12-78); Albumin, Blood 3.8 g/dL (3.4-5.0); Albumin/Globulin Ratio 1.1 (0.8-1.8); Alk Phos 117 U/L (50-136); Anion Gap 10 mmol/L (6-16); Aspartate Aminotrans (AST/SGOT 27 U/L (12-37); Bilirubin, Total 0.5 mg/dL (0.1-1.0); Blood Urea Nitrogen 12 mg/dL (8-24); Bun/Creatinine Ratio 14.6 (12.0-20.0); CO2, Blood 26 mmol/L (21-32); Calcium, Blood 8.7 mg/dL (8.5-10.1); Chloride, Blood 104 mmol/L (98-108); Creatinine, Blood 0.82 mg/dL (0.40-1.00); Globulin, Blood 3.6 g/dL (2.2-4.0); Glomerular Filtration Rate >60 (60-); Glucose, Blood 151 mg/dL (70-99); Potassium, Blood 3.6 mmol/L (3.5-5.5); Sodium, Blood 140 mmol/L (136-145); Total Protein, Blood 7.4 g/dL (6.4-8.2); Troponin I <0.015 ng/mL (0.000-0.040)
[2020-11-17 21:23] LABS: Magnesium, Blood 1.5 mg/dL (1.6-2.4)
== END 2020-11-18 00:25 | disposition home or self-care (01) ==
LOC: ER 20:07
PROVIDERS: Emergency Medicine
DX: R07.9 Chest pain, unspecified (principal); R10.13 Epigastric pain; E83.42 Hypomagnesemia; R74.8 Abnormal levels of other serum enzymes; Z79.899 Other long term (current) drug therapy; Z79.84 Long term (current) use of oral hypoglycemic drugs; Z79.02 Long term (current) use of antithrombotics/antiplatelets; Z88.0 Allergy status to penicillin; Z91.09 Other allergy status, other than to drugs and biological substances; Z91.040 Latex allergy status; Z88.1 Allergy status to other antibiotic agents
CPT/HCPCS: 36415; 71046; 74177; 80053; 83605; 83690; 83735; 84484; 85025; 93005; 93010; 99285-25; A9270; J2270; J2405; Q9967

== ENCOUNTER → 2020-11-18 | Outpatient (CLI) | payer OTHER ==
[~2020-11-18] MED LIST changes: +ACULAR5 M1 IO; +PROC5 PO; +SITA50T2 PO; +VOLTAREN ARTHRI20 GM TOP
== END | disposition home or self-care (01) ==
LOC: LAB 08:55 → LAB SHORT 08:55 → LAB FUT 11-15 13:05 → EDSTATUS 11-15 13:05
PROVIDERS: Internal Medicine Gastroenterology
DX: R19.7 Diarrhea, unspecified (principal)
CPT/HCPCS: 82710

== ENCOUNTER → 2021-06-18 | Outpatient (CLI) | payer OTHER ==
[2021-06-19 09:11] LABS: C DIFFICILE DNA NEGATIVE (Negative)
== END | disposition home or self-care (01) ==
LOC: LAB 13:46 → LAB SHORT 13:46
PROVIDERS: Internal Medicine Hematology & Oncology
DX: R19.7 Diarrhea, unspecified (principal)
CPT/HCPCS: 87493

== ENCOUNTER → 2021-07-02 | Outpatient (CLI) | payer OTHER ==
[2021-07-02 15:44] LABS: Alanine Aminotransfer (ALT/SGP 43 U/L (12-78); Albumin, Blood 3.9 g/dL (3.4-5.0); Albumin/Globulin Ratio 1.1 (0.8-1.8); Alk Phos 92 U/L (50-136); Anion Gap 7 mmol/L (6-16); Aspartate Aminotrans (AST/SGOT 30 U/L (12-37); Bilirubin, Total 0.6 mg/dL (0.1-1.0); Blood Urea Nitrogen 16 mg/dL (8-24); Bun/Creatinine Ratio 25.5 (12.0-20.0); CO2, Blood 25 mmol/L (21-32); Chloride, Blood 105 mmol/L (98-108); Creatinine, Blood 0.63 mg/dL (0.40-1.00); Ferritin, Serum 11 ng/mL (8-252); Globulin, Blood 3.4 g/dL (2.2-4.0); Glomerular Filtration Rate >60 (60-); Glucose, Blood 144 mg/dL (70-99); Iron Serum 24 ug/dL (50-170); Percent Saturation 4.8 % (15.0-50.0); Phosphorus, Blood 3.6 mg/dL (2.5-4.9); Potassium, Blood 4.4 mmol/L (3.5-5.5); Sodium, Blood 137 mmol/L (136-145); Total Iron Binding Capacity 495 ug/dL (250-450); Total Protein, Blood 7.3 g/dL (6.4-8.2)
== END | disposition home or self-care (01) ==
LOC: LAB SHORT 11:17
PROVIDERS: Internal Medicine Hematology & Oncology
DX: D50.0 Iron deficiency anemia secondary to blood loss (chronic) (principal)
CPT/HCPCS: 80053; 82728; 83540; 83550; 84100

== ENCOUNTER → 2021-08-19 | Outpatient (CLI) | payer OTHER ==
[2021-08-19 19:12] LABS: Percent Saturation 9.8 % (15.0-50.0)
== END ==
LOC: LAB SHORT 17:57
PROVIDERS: Internal Medicine Hematology & Oncology
DX: D50.0 Iron deficiency anemia secondary to blood loss (chronic) (principal)
CPT/HCPCS: 82728; 83540; 83550

== ENCOUNTER 2021-10-02 09:46 | Day surgery (SDC) | payer OTHER | END 2021-10-02 10:20 | disposition home or self-care (01) | LOC: ORSCSDS 09:46 | DX: R13.10 Dysphagia, unspecified (principal); Z86.010 Personal history of colon polyps; Z53.9 Procedure and treatment not carried out, unspecified reason | CPT/HCPCS: J2704; J7120 ==

== ENCOUNTER 2021-11-06 11:20 | Day surgery (SDC) | payer OTHER ==
[~2021-11-06] VITALS: Ht 162.6 cm; Wt 56.7 kg
[2021-11-06] MEDS ORDERED: METTREX2.5 PO (11:49)
--- NOTE | 2021-11-06 14:05 | NUR ---
11/06/21 1405 RHONDA RANDOLPH History, Chart, Medications and Allergies reviewed before start of procedure. Patient confirms NPO status and agrees with scheduled surgery. 3-LEAD EKG REVIEWED WITH PHYSICIAN PRIOR TO START OF PROCEDURE. MONITOR INTACT WITH CONTINUOUS PULSE OXIMETRY AND INTERMITTENT BP. PATIENT DETERMINED TO BE ASA APPROPRIATE FOR PROPOFOL SEDATION PRIOR TO START OF PROCEDURE BY DR. ELIZALDE. 02 VIA POM.
== END 2021-11-06 23:15 | disposition home or self-care (01) ==
LOC: ORSCMMR 11:20 → ORSCSDS 12:30 → ORD 12:30 → ORSCMMR 23:15
PROVIDERS: Internal Medicine Gastroenterology
PROC: 0DBL8ZX Excision of Transverse Colon, Via Natural or Artificial Opening Endoscopic, Diagnostic (ICD-10-PCS; principal; 2021-11-06 12:30)
PROC: 0DBK8ZX Excision of Ascending Colon, Via Natural or Artificial Opening Endoscopic, Diagnostic (ICD-10-PCS; principal; 2021-11-06 12:30)
PROC: 0DBH8ZX Excision of Cecum, Via Natural or Artificial Opening Endoscopic, Diagnostic (ICD-10-PCS; principal; 2021-11-06 12:30)
PROC: 0D578ZZ Destruction of Stomach, Pylorus, Via Natural or Artificial Opening Endoscopic (ICD-10-PCS; principal; 2021-11-06 12:30)
DX: D50.9 Iron deficiency anemia, unspecified (principal); D12.3 Benign neoplasm of transverse colon; D12.0 Benign neoplasm of cecum; D12.2 Benign neoplasm of ascending colon; K57.30 Diverticulosis of large intestine without perforation or abscess without bleeding; K64.8 Other hemorrhoids; K31.819 Angiodysplasia of stomach and duodenum without bleeding; Z86.010 Personal history of colon polyps; I10 Essential (primary) hypertension; E11.42 Type 2 diabetes mellitus with diabetic polyneuropathy; Z79.84 Long term (current) use of oral hypoglycemic drugs; E03.9 Hypothyroidism, unspecified; F03.90 Unspecified dementia, unspecified severity, without behavioral disturbance, psychotic disturbance, mood disturbance, and anxiety; F17.210 Nicotine dependence, cigarettes, uncomplicated; Z86.73 Personal history of transient ischemic attack (TIA), and cerebral infarction without residual deficits; Z80.0 Family history of malignant neoplasm of digestive organs; Z79.899 Other long term (current) drug therapy; J44.9 Chronic obstructive pulmonary disease, unspecified
CPT/HCPCS: 82947; 88305; J2250; J2704; J7120

== ENCOUNTER → 2022-01-27 | Outpatient (CLI) | payer OTHER ==
[~2022-01-27] MED LIST changes: +METTREX2.5 PO
[2022-01-27 19:04] LABS: Percent Saturation 4.2 % (15.0-50.0)
== END ==
LOC: LAB SHORT 11:52
PROVIDERS: Internal Medicine Hematology & Oncology
DX: D50.0 Iron deficiency anemia secondary to blood loss (chronic) (principal)
CPT/HCPCS: 82728; 83540; 83550

== ENCOUNTER → 2022-03-12 | Outpatient (CLI) | payer OTHER ==
[~2022-03-12] MED LIST changes: +Percocet 5-3251 EACH PO
[2022-03-12 20:35] LABS: Percent Saturation 33.4 % (15.0-50.0)
== END | disposition home or self-care (01) ==
LOC: LAB 13:30 → LAB SHORT 13:30
PROVIDERS: Internal Medicine Hematology & Oncology
DX: D50.0 Iron deficiency anemia secondary to blood loss (chronic) (principal); M06.9 Rheumatoid arthritis, unspecified
CPT/HCPCS: 82728; 83540; 83550

== ENCOUNTER 2022-03-14 20:50 | Emergency (ER) | payer OTHER ==
[~2022-03-14] VITALS: Ht 162.6 cm; Wt 58.5 kg
[~2022-03-14 20:50] MED LIST changes: -Percocet 5-3251 EACH PO
[2022-03-14] MEDS ORDERED: Percocet 5-3251 EACH PO (22:30)
== END 2022-03-14 23:00 | disposition home or self-care (01) ==
LOC: ER 20:50
DX: M54.40 Lumbago with sciatica, unspecified side (principal); Z79.899 Other long term (current) drug therapy; Z79.84 Long term (current) use of oral hypoglycemic drugs
CPT/HCPCS: 72100; 73110; A9270

== ENCOUNTER → 2022-03-17 | Outpatient (CLI) | payer OTHER ==
[~2022-03-17] MED LIST changes: +Percocet 5-3251 EACH PO
[2022-03-17 18:57] LABS: BASOPHILS ABSOLUTE AUTO 0.08 K/mm3 (0.00-0.23); BASOPHILS PERCENT AUTO 2 % (0-2); EOSINOPHILS ABSOLUTE AUTO 0.11 K/mm3 (0.00-0.68); EOSINOPHILS PERCENT AUTO 2 % (0-6); Hematocrit 38.2 % (33.0-51.0); Hemoglobin 12.4 g/dL (11.5-16.0); IMMATURE GRAN ABSOLUTE AUTO 0.01 K/mm3 (0.00-0.10); IMMATURE GRAN PERCENT AUTO 0 % (0-1); LYMPHOCYTES ABSOLUTE AUTO 1.13 K/mm3 (0.84-5.20); LYMPHOCYTES PERCENT AUTO 22 % (21-46); MONOCYTES ABSOLUTE AUTO 0.46 K/mm3 (0.16-1.47); MONOCYTES PERCENT AUTO 9 % (4-13); Mean Corpuscular HGB 29.5 pg (26.0-34.0); Mean Corpuscular HGB Conc 32.5 g/dL (31.5-36.5); Mean Corpuscular Volume 91 fL (80-100); Mean Platelet Volume 9.8 fL (9.1-12.4); NEUTROPHILS ABSOLUTE AUTO 3.33 K/mm3 (1.96-9.15); NEUTROPHILS PERCENT AUTO 65 % (41-73); Platelet Count 307 K/mm3 (150-400); RDW Coefficient Variation 26.4 % (11.7-14.2); RDW Standard Deviation 83.1 fL (35.1-46.3); Red Blood Cell Count 4.21 M/mm3 (3.80-5.20); White Blood Cell Count 5.12 K/mm3 (4.00-11.30)
[2022-03-17 20:07] LABS: Albumin, Blood 3.9 g/dL (3.4-5.0); Albumin/Globulin Ratio 1.1 (0.8-1.8); Bilirubin, Total 0.4 mg/dL (0.1-1.0); Bun/Creatinine Ratio 19.5 (12.0-20.0); Calcium, Blood 8.6 mg/dL (8.5-10.1); Creatinine, Blood 0.67 mg/dL (0.40-1.00); Globulin, Blood 3.7 g/dL (2.2-4.0); Potassium, Blood 4.1 mmol/L (3.5-5.5); Total Protein, Blood 7.6 g/dL (6.4-8.2)
== END ==
LOC: LAB SHORT 16:30 → LAB 16:30
PROVIDERS: Family Medicine
DX: R10.9 Unspecified abdominal pain (principal); R60.0 Localized edema
CPT/HCPCS: 80053; 83880; 85025; 85651

== ENCOUNTER → 2022-03-25 | Outpatient (CLI) | payer OTHER | END | disposition home or self-care (01) | LOC: LAB SHORT 13:51 → LAB 13:51 | DX: N39.0 Urinary tract infection, site not specified (principal) | CPT/HCPCS: 87086; 87147 ==

== ENCOUNTER → 2022-07-21 | Outpatient (CLI) | payer OTHER | END | disposition home or self-care (01) | DX: R06.00 Dyspnea, unspecified (principal) ==

== ENCOUNTER 2022-12-16 06:28 | Day surgery (SDC) | payer OTHER ==
[~2022-12-16] VITALS: Ht 162.6 cm; Wt 57.7 kg
[~2022-12-16 06:28] MED LIST changes: +CALCIUM 600 MG1 EA17 PO; +DICLOFENAC SOD100 G1 TP; +EUTHYROX75 MC1 PO; +HYDRA25 PO; +Hydroxychloroq200 MG PO; +MEMA5TAB PO; +MEMANTINE HCL511 PO; +METHOTREXATE2.510 PO; +PANTOPRAZOLE SO40 M2 PO; +Prinivil10 MG PO; +RIVASTIGMINE6 MG PO; +VENLAFAXINE HC225 MG PO; +Ventolin5 MG/1 ML INH
[2022-12-16] MEDS ORDERED: FOLI1 (06:54)
[2022-12-16] MEDS ORDERED: Atarax10 MG (06:55)
[2022-12-16] MEDS ORDERED: HYDSUL200 (06:55)
[2022-12-16] MEDS ORDERED: Lisinopril2.5 MG (06:55)
[2022-12-16] MEDS ORDERED: EUTHYROX50 MCG (06:55)
[2022-12-16] MEDS ORDERED: MEMA5TAB (06:55)
[2022-12-16] MEDS ORDERED: GABA100 (06:55)
[2022-12-16] MEDS ORDERED: VENL25 (06:56)
[2022-12-16] MEDS ORDERED: PANT20 (06:56)
[2022-12-16] MEDS ORDERED: METF500 (06:56)
[2022-12-16] MEDS ORDERED: METTREX2.5 (06:56)
[2022-12-16 08:36] VITALS: BP 155/63
== END 2022-12-16 08:39 | disposition home or self-care (01) ==
LOC: ORSCSDS 06:28
PROVIDERS: Internal Medicine Gastroenterology
PROC: 0D758ZZ Dilation of Esophagus, Via Natural or Artificial Opening Endoscopic (ICD-10-PCS; principal; 2022-12-16 08:00)
PROC: 0DJ08ZZ Inspection of Upper Intestinal Tract, Via Natural or Artificial Opening Endoscopic (ICD-10-PCS; principal; 2022-12-16 08:00)
DX: R13.10 Dysphagia, unspecified (principal); I10 Essential (primary) hypertension; E11.9 Type 2 diabetes mellitus without complications; M79.7 Fibromyalgia; F17.210 Nicotine dependence, cigarettes, uncomplicated; M06.9 Rheumatoid arthritis, unspecified; F32.A Depression, unspecified; J44.9 Chronic obstructive pulmonary disease, unspecified; Z79.85 Long-term (current) use of injectable non-insulin antidiabetic drugs; Z79.84 Long term (current) use of oral hypoglycemic drugs; Z79.899 Other long term (current) drug therapy
CPT/HCPCS: 82947; J2704; J7120